=== PATIENT | female | born 1965 | race Caucasian/White ===

== ENCOUNTER 2018-10-01 12:12 | Emergency (ER) | payer OTHER ==
[~2018-10-01] VITALS: Ht 165.1 cm; Wt 69.0 kg
[~2018-10-01 12:12] MED LIST: AFRIN15 ML NS; ALLEGRA-D 12 H1 EAC1; AUGMENTIN 875875 MG PO; CLARITIN10 MG PO; DEXILANT30 MG PO; ENDOCET 5-3251 EACH PO; FAMVIR125 MG PO; FIORICET 50-321 EACH PO; FLEXERIL PO; FLONASE 0.05%50 MCG NASAL; FOLIC ACID1 MG PO; IBUPROFEN 800800 M1 PO; IRON325 PO; MAXALT MLT ODT10 M1 PO; MEDROLDOSEPACK PO; NORCO 5-325 TA1 EACH PO; OMEPRAZOLE40 MG PO; ONDANSETRON HCL4 M2 PO; PROMETHAZINE HC25 M1 PO; PROMETHAZINE12.5 M4 RE; RIZATRIPTAN10 M1 PO; VICODIN 5-5001 EACH PO; ZOFRAN 4 MG ORAL4 MG PO; ZOFRAN ODT4 MG PO; ZOFRAN4 MG PO; ZPAK PO
[2018-10-01] MEDS ORDERED: LIPITOR10 MG PO (12:30)
[2018-10-01] MEDS ORDERED: FISH OIL 1,001000 M2 PO (12:31)
[2018-10-01] MEDS ORDERED: NEPHROCAPS SOFT1 CAP PO (12:31)
[2018-10-01] MEDS ORDERED: GARLIC1 EACH PO (12:31)
[2018-10-01] MEDS ORDERED: FLONASE 0.05%50 MCG NASAL (12:31)
[2018-10-01] MEDS ORDERED: IBUPROFEN 800800 M1 PO (12:31)
[2018-10-01] MEDS ORDERED: PRILOSEC 10MG C10 MG PO (12:32)
[2018-10-01] MEDS ORDERED: CLARITIN10 MG PO (12:32)
[2018-10-01 14:10] VITALS: BP 121/60
== END 2018-10-01 14:11 | disposition home or self-care (01) ==
LOC: M.ERS 12:12
DX: G43.909 Migraine, unspecified, not intractable, without status migrainosus (principal); M79.7 Fibromyalgia; K21.9 Gastro-esophageal reflux disease without esophagitis; Z88.5 Allergy status to narcotic agent; Z88.8 Allergy status to other drugs, medicaments and biological substances; Z88.6 Allergy status to analgesic agent; Z91.040 Latex allergy status

== ENCOUNTER 2019-07-06 12:34 | Emergency (ER) | payer OTHER ==
[~2019-07-06] VITALS: Ht 165.1 cm; Wt 69.8 kg
[~2019-07-06 12:34] MED LIST changes: +FISH OIL 1,001000 M2 PO; +GARLIC1 EACH PO; +LIPITOR10 MG PO; +NEPHROCAPS SOFT1 CAP PO; +PRILOSEC 10MG C10 MG PO
[2019-07-06] MEDS ORDERED: ZOFRAN ODT4 MG PO (14:50)
[2019-07-06 15:11] VITALS: BP 117/63
== END 2019-07-06 15:13 | disposition home or self-care (01) ==
LOC: M.ERS 12:34
DX: G43.909 Migraine, unspecified, not intractable, without status migrainosus (principal); R11.2 Nausea with vomiting, unspecified; M79.7 Fibromyalgia; K21.9 Gastro-esophageal reflux disease without esophagitis; Z88.5 Allergy status to narcotic agent; Z88.6 Allergy status to analgesic agent; Z88.8 Allergy status to other drugs, medicaments and biological substances; Z91.040 Latex allergy status

== ENCOUNTER 2019-11-01 11:33 | Emergency (ER) | payer OTHER ==
[~2019-11-01] VITALS: Ht 165.1 cm; Wt 71.7 kg
[~2019-11-01 11:33] MED LIST changes: -PRILOSEC 10MG C10 MG PO
[2019-11-01 13:33] VITALS: BP 127/65
== END 2019-11-01 13:34 | disposition home or self-care (01) ==
LOC: M.ERS 11:33
DX: G43.909 Migraine, unspecified, not intractable, without status migrainosus (principal); M79.7 Fibromyalgia; K21.9 Gastro-esophageal reflux disease without esophagitis; Z88.5 Allergy status to narcotic agent; Z88.6 Allergy status to analgesic agent; Z91.040 Latex allergy status; Z88.8 Allergy status to other drugs, medicaments and biological substances